=== PATIENT | female | born 1975 | race Caucasian/White ===

== ENCOUNTER 2018-06-29 18:27 | Emergency (ER) | payer OTHER ==
[~2018-06-29] VITALS: Ht 172.7 cm; Wt 77.1 kg
[~2018-06-29 18:27] MED LIST: ADVIL PM CAPLET1 TAB; AMBIEN CR12.5 MG/BL; BUPROPION XL300 MG; KETO10TA2 PO; LEVAQUIN500 MG PO; MIRALAX510 GM PO; PAXIL CR37.5 MG
== END 2018-06-29 21:23 | disposition home or self-care (01) ==
LOC: ER 18:27
DX: A04.8 Other specified bacterial intestinal infections (principal); R10.13 Epigastric pain

== ENCOUNTER 2018-09-16 09:47 | Emergency (ER) | payer OTHER ==
[~2018-09-16] VITALS: Ht 177.8 cm; Wt 83.9 kg
[2018-09-16] MEDS ORDERED: TOPROL XL50 MG PO (10:32)
== END 2018-09-16 17:30 | disposition home or self-care (01) ==
LOC: ER 09:47
DX: K52.9 Noninfective gastroenteritis and colitis, unspecified (principal)